=== PATIENT | female | born 1970 | race Caucasian/White ===

== ENCOUNTER 2022-12-14 13:21 | Emergency (ER) | payer BC ==
[~2022-12-14] VITALS: Ht 165.1 cm; Wt 64.0 kg
[2022-12-14 13:23] VITALS: BP 125/72
== END 2022-12-14 15:08 | disposition home or self-care (01) ==
LOC: ER 13:22
DX: M79.89 Other specified soft tissue disorders (principal); Z98.890 Other specified postprocedural states
CPT/HCPCS: 93971; 99284

== ENCOUNTER 2023-11-20 06:23 | Inpatient (IN) | payer BC ==
[2023-11-11 12:47] LABS: BASOPHILS % (AUTO) 0.6 % (0-1); EOSINOPHILS # (AUTO) 0.1 X10'3 (0-0.9); EOSINOPHILS % (AUTO) 1.6 % (0-6); LYMPHOCYTES # (AUTO) 1.5 X10'3 (1.1-4.8); LYMPHOCYTES % (AUTO) 31.6 % (21-51); MEAN CORPUSCULAR HEMOGLOBIN 28.8 PG (27.0-31.0); MEAN CORPUSCULAR HGB CONC 33.4 g/dL (33.0-36.5); MEAN CORPUSCULAR VOLUME 86.2 FL (78-98); MEAN PLATELET VOLUME 7.4 FL (7.4-10.4); MONOCYTES # (AUTO) 0.4 X10'3 (0-0.9); MONOCYTES % (AUTO) 7.9 % (2-12); NEUTROPHILS # (AUTO) 2.7 X10'3 (1.8-7.7); NEUTROPHILS % (AUTO) 58.3 % (42-75); PRE OP HEMATOCRIT 41.5 % (35.0-45.0); PRE OP HEMOGLOBIN 13.9 g/dL (12.0-16.0); PRE OP PLATELET COUNT 293 X10'3 (140-440); PRE OP WHITE BLOOD COUNT 4.6 10'3 (4.8-10.8); RED BLOOD COUNT 4.82 X10'6 (4.20-5.60); RED CELL DISTRIBUTION WIDTH 13.8 % (11.5-14.5)
[2023-11-11 13:16] LABS: ALBUMIN 3.5 G/DL (3.4-5.0); ALBUMIN/GLOBULIN RATIO 0.9 (1.1-1.5); ALKALINE PHOSPHATASE 51 IU/L (46-116); BLOOD UREA NITROGEN 10 MG/DL (7-18); BUN/CREATININE RATIO 15.9 (10.0-20.0); CALCIUM 8.7 MG/DL (8.5-10.1); CHLORIDE 105 MMOL/L (99-107); CREATININE 0.63 MG/DL (0.40-0.90); PRE OP ALT 21 U/L (30-65); PRE OP ANION GAP 7 (8-16); PRE OP AST 13 U/L (10-37); PRE OP BILIRUB, TOTAL 0.4 MG/DL (0.0-1.0); PRE OP GLUCOSE 90 MG/DL (70-104); PRE OP POTASSIUM 3.9 MMOL/L (3.4-5.1); PRE OP SODIUM 140 MMOL/L (135-145); TOTAL CARBON DIOXIDE 28.5 MMOL/L (24-32); TOTAL PROTEIN 7.2 G/DL (6.4-8.2); eGFR > 90 ML/MIN
[~2023-11-20] VITALS: Ht 165.1 cm; Wt 62.6 kg
[2023-11-20] VITALS (23 sets, daily range): BP systolic 88–149; BP diastolic 48–82; PULSE 55–86; RESP 11–23; TEMP 98–98.6; O2SAT 94–100
[2023-11-20] MEDS: cefazolin 2gm/D5W 100mL 100 ML IV ONE (05:30)
[2023-11-20] MEDS: tranexamic acid inj. 1,000 MG in normal saline IV soln 100ML IV ONE (05:30)
[~2023-11-20 06:23] MED LIST: ESTR0.6261 PO; MULT-1074 PO; PANT40TA54 PO; RIME75TA SL; SACC250C9 PO; [UNRECOGNIZED DRUG - OTHER] PO
[2023-11-20] MEDS: famotidine 20mg tablet PO ONE (06:46)
[2023-11-20] MEDS: ringers solution, lacted 1,000 ML IV SCH ×2 (06:47→13:10)
[2023-11-20] MEDS: vancomycin/NS 1 GM in NS 250 ML IV ONE (06:47)
[2023-11-20] MEDS ORDERED: epiNEPHrine 1 mg/ml inj ONE (07:50)
[2023-11-20] MEDS ORDERED: morphine 10mg/ml inj. ONE (07:51)
[2023-11-20] MEDS ORDERED: ROPIVAcaine 0.5% (5mg/ml) 30ml vial ONE ×3 (07:51→13:34)
[2023-11-20] MEDS ORDERED: vancomycin 1,000mg inj ONE (07:51)
[2023-11-20] MEDS: scopolamine 1MG/72H patch 1 PATCH PATCH.TD.3 TD ONE (08:16)
[2023-11-20] MEDS ORDERED: dexmedetomidine 200mcg/2ml inj. IV ONE (08:19)
[2023-11-20] MEDS ORDERED: tetracaine 1% (10mg/ml) pres. free inj. ONE (08:20)
[2023-11-20] MEDS ORDERED: propofol inj 20 ML IV ONE ×2 (08:25)
[2023-11-20] MEDS ORDERED: LIDOcaine 2% (20mg/ml) 5ml vial ONE (08:25)
[2023-11-20] MEDS ORDERED: MIDAZolam 5mg/ml 2ml vial IV PRN (09:15)
[2023-11-20] MEDS: MIDAZolam 5mg/ml 2ml vial IV ONE (11:01)
[2023-11-20] MEDS ORDERED: BUPIVAcaine/dex-water/PF 7.5 mg/ml 2ml ampul ONE (12:31)
[2023-11-20] MEDS ORDERED: MIDAZolam 1mg/ml 10ml vial ONE (12:33)
[2023-11-20] MEDS ORDERED: fentaNYL/PF 50MCG/1 ML 2ML syringe ONE (12:33)
[2023-11-20] MEDS: vancomycin 1,000mg inj IVT ONE (13:00)
[2023-11-20] MEDS ORDERED: hydrALAZINE 20mg/ml inj. IV PRN (13:10)
[2023-11-20] MEDS ORDERED: fentaNYL/PF 50MCG/1 ML 2ML syringe IV PRN ×2 (13:10)
[2023-11-20] MEDS ORDERED: morphine 2 MG/ML inj. syringe IV PRN (13:10)
[2023-11-20] MEDS ORDERED: labetalol 20mg/4ml (5mg/ml) syringe IV PRN (13:10)
[2023-11-20] MEDS ORDERED: ROPIVAcaine 0.2% (10 MG/5 ML) BOLUS INJECTION ADDCANAL PRN (13:10)
[2023-11-20] MEDS ORDERED: dexamethasone sod phosphate 4mg/ml inj. ONE (13:34)
[2023-11-20] MEDS ORDERED: HYDROmorphone inj. 0.5 MG/0.5 ML DISP.SYRIN IV PRN (15:20)
[2023-11-20] MEDS: potassium Cl 20mEq in NS 1,000 ML IV SCH (15:20)
[2023-11-20] MEDS ORDERED: magnesium hydroxide 30ml (MOM) UD suspension PO PRN (15:20)
[2023-11-20] MEDS ORDERED: oxyCODONE IR 5mg (immed. release) tablet PO PRN (15:20)
[2023-11-20] MEDS ORDERED: acetaminophen 325mg tablet PO PRN (15:20)
[2023-11-20] MEDS ORDERED: bisacodyl 10mg suppository rectal RC PRN (15:20)
[2023-11-20] MEDS ORDERED: naloxone 0.4 mg/ml inj IV PRN (15:20)
[2023-11-20] MEDS: ROPIVAcaine 0.2%/PF PUMP/bolus 545 ML ADDCANAL SCH (15:46)
[2023-11-20] MEDS ORDERED: NURTEC 75 MG SL PRN (15:55)
[2023-11-20] MEDS: morphine 4 MG/ML inj SYRINge IV PRN (16:00)
[2023-11-20] MEDS: ondansetron/PF 4mg/2ml inj IV PRN (16:41)
[2023-11-20] MEDS: HYDROmorphone 1 mg/ml syringe IV PRN (18:29)
[2023-11-20] MEDS: tranexamic acid inj. 600 MG in normal saline 100ml IV soln 94 ML IV ONE (18:35)
[2023-11-20] MEDS: vancomycin/NS 1 GM ADD-VANTAGE 250 ML IV SCH (20:47)
[2023-11-20] MEDS: gabapentin 300mg capsule PO SCH (20:52)
[2023-11-20] MEDS: acetaminophen 325mg tablet PO SCH (20:52)
[2023-11-20] MEDS: sennosides 8.6mg tablet PO SCH (20:53)
[2023-11-21 02:00] VITALS: BP 134/77; PULSE 95; RESP 16; TEMP 97.4; O2SAT 97
[2023-11-21] MEDS: oxyCODONE IR 5mg (immed. release) tablet PO PRN (02:52)
[2023-11-21] MEDS: pantoprazole 40mg Tablet.DR PO PRN (04:12)
[2023-11-21 06:00] VITALS: BP 125/65; PULSE 115; RESP 20; TEMP 97.6; O2SAT 96
[2023-11-21] MEDS: multivitamins, therapeutics tablet PO SCH (07:11)
[2023-11-21] MEDS: enoxaparin 40mg/0.4ml syringe SQ SCH (07:13)
[2023-11-21 07:46] LABS: BASOPHILS % (AUTO) 0.1 % (0-1); EOSINOPHILS % (AUTO) 0 % (0-6); HEMATOCRIT 36.3 % (35.0-45.0); HEMOGLOBIN 12.3 g/dl (12.0-16.0); LYMPHOCYTES # (AUTO) 0.9 X10'3 (1.1-4.8); LYMPHOCYTES % (AUTO) 8.5 % (21-51); MEAN CORPUSCULAR HEMOGLOBIN 29.7 PG (27.0-31.0); MEAN CORPUSCULAR VOLUME 87.3 FL (78-98); MEAN PLATELET VOLUME 7.4 FL (7.4-10.4); MONOCYTES % (AUTO) 9.6 % (2-12); NEUTROPHILS # (AUTO) 8.4 X10'3 (1.8-7.7); NEUTROPHILS % (AUTO) 81.8 % (42-75); PLATELET COUNT 301 X10'3 (140-440); RED BLOOD COUNT 4.16 X10'6 (4.20-5.60); WHITE BLOOD COUNT 10.3 X10'3 (4.5-11.0)
[2023-11-21] MEDS ORDERED: estrogen, conjugated 0.625mg tablet PO SCH ×2 (08:00→08:04)
[2023-11-21] MEDS: ondansetron/PF 4mg/2ml inj IV PRN (08:04)
[2023-11-21 08:17] LABS: ALANINE AMINOTRANSFERASE 16 U/L (12-78); ALBUMIN 2.8 G/DL (3.4-5.0); ALBUMIN/GLOBULIN RATIO 0.8 (1.1-1.5); ALKALINE PHOSPHATASE 38 IU/L (46-116); ANION GAP 6 (8-16); ASPARTATE AMINO TRANSFERASE 19 U/L (10-37); BILIRUBIN,TOTAL 0.4 MG/DL (0.1-1.0); BLOOD UREA NITROGEN 6 MG/DL (7-18); CALCIUM 8.1 MG/DL (8.5-10.1); CHLORIDE 104 MMOL/L (99-107); GLUCOSE 117 MG/DL (70-104); POTASSIUM 3.7 MMOL/L (3.5-5.1); SODIUM 136 MMOL/L (135-145); TOTAL CARBON DIOXIDE 26.1 MMOL/L (24-32); TOTAL PROTEIN 6.2 G/DL (6.4-8.2); eCRCL 101 ML/MIN; eGFR > 90 ML/MIN
[2023-11-21 10:00] VITALS: BP 130/66; PULSE 110; RESP 18; TEMP 98.4; O2SAT 96
[2023-11-21] MEDS ORDERED: ONDA4TAB12 PO (11:05)
[2023-11-21] MEDS ORDERED: IBUP-2697 PO (11:18)
[2023-11-21 11:25] VITALS: RESP 16
[2023-11-21] MEDS ORDERED: celeCOXIB 100mg capsule PO SCH (20:00)
[2023-11-22] MEDS ORDERED: acetaminophen 325mg tablet PO PRN (15:20)
== END 2023-11-21 11:50 | disposition home health service (06) | DRG 470 ==
LOC: PAS 06:23 → PAS IN 15:25 → ORTHO 4S 18:09
PROVIDERS: ADMIT Orthopaedic Surgery; ATTEND Orthopaedic Surgery
PROC: 0JH80WZ Insertion of Totally Implantable Vascular Access Device into Abdomen Subcutaneous Tissue and Fascia, Open Approach (ICD-10-PCS; 2023-11-20)
PROC: 3E0T3BZ Introduction of Anesthetic Agent into Peripheral Nerves and Plexi, Percutaneous Approach (ICD-10-PCS; 2023-11-20)
PROC: 3E0T33Z Introduction of Anti-inflammatory into Peripheral Nerves and Plexi, Percutaneous Approach (ICD-10-PCS; 2023-11-20)
PROC: 0SRD0J9 Replacement of Left Knee Joint with Synthetic Substitute, Cemented, Open Approach (ICD-10-PCS; principal; 2023-11-20 12:31)
DX: M17.12 Unilateral primary osteoarthritis, left knee (principal); F41.9 Anxiety disorder, unspecified; K21.9 Gastro-esophageal reflux disease without esophagitis; G43.909 Migraine, unspecified, not intractable, without status migrainosus; Z90.710 Acquired absence of both cervix and uterus; Z88.2 Allergy status to sulfonamides
CPT/HCPCS: Z7506; Z7508; 36415; 73560; 80053; 82948; 85025; 87081; 93005; 97116; 97161; 97530; A4215; A4615; A6253; A6446; A6449; A7000; C1713; C1776; G0378; J0171; J0690; J1100; J1170; J1650; J2250; J2270; J2274; J2405; J2704; J2795; J3010; J3370; J3480; J3490; J7120